=== PATIENT | male | born 1965 | race Two or more races ===

== ENCOUNTER 2017-06-19 16:54 | Emergency (ER) | payer MEDICAID ==
[~2017-06-19] VITALS: Ht 177.8 cm; Wt 65.8 kg
[2017-06-19 17:02] VITALS: BP 117/66
== END 2017-06-19 22:41 | disposition left against medical advice (07) ==
LOC: ER 16:54
DX: R51 Headache (principal); Z53.21 Procedure and treatment not carried out due to patient leaving prior to being seen by health care provider; Y08.89XA Assault by other specified means, initial encounter
CPT/HCPCS: 70450

== ENCOUNTER 2023-11-28 12:58 | Inpatient (IN) | payer MEDICAID ==
[~2023-11-28] VITALS: Ht 177.8 cm; Wt 64.1 kg
[2023-11-28 14:18] LABS: Basophils # (auto) 0.1 10 ^3/uL (0-0.2); Basophils % (auto) 0.9 % (0.0-2.0); Eosinophils # (auto) 0.1 10 ^3/uL (0-0.8); Eosinophils % (auto) 1.8 % (0.0-7.0); Hematocrit 38.1 % (41.0-53.0); Hemoglobin 13.4 g/dL (13.5-17.5); Lymphocytes % (auto) 47.6 % (10.0-50.0); Mean Corpuscular Volume 94.3 fL (80.0-100.0); Monocytes # (auto) 0.4 10 ^3/uL (0-1.3); Monocytes % (auto) 6.4 % (0.0-12.0); Neutrophils # (auto) 2.8 10 ^3/uL (1.6-8.6); Neutrophils % (auto) 43.3 % (37.0-80.0); Nucleated Red Blood Cells % 0.1 %; Platelet Count (auto) 249 10^3/uL (140-450); Red Blood Cells 4.05 10^6/uL (4.5-5.90); Red Cell Distribution Width 13.1 % (11.8-14.3); White Blood Cell 6.4 10^3/uL (4.4-10.8)
[2023-11-28 14:35] LABS: Chloride 105 mmol/L (98-107); Potassium 3.9 mmol/L (3.5-5.1); Sodium 142 mmol/L (136-145)
[2023-11-28 14:36] LABS: Anion Gap 7 (5-15); Calcium 9.6 mg/dL (8.7-10.4); Carbon Dioxide 30 mmol/L (20-30)
[2023-11-28 14:41] LABS: BUN/Creatinine Ratio 10.8 (10.0-20.0); Blood Urea Nitrogen 9 mg/dL (9-23); Glucose 85 mg/dL (74-106)
[2023-11-28 14:42] LABS: INR 1.06 (0.9-1.15); Partial Thromboplastin Time 28.2 SEC (24.5-34.5); Prothrombin Time 11.2 sec (9.3-11.8)
[2023-11-28 15:05] LABS: Urine Bacteria FEW /hpf (None Seen); Urine Blood Negative /uL (Negative); Urine Clarity Clear (Clear); Urine Color Yellow (Yellow); Urine Mucus FEW (None Seen); Urine Protein, UAD Negative (Negative); Urine Specific Gravity 1.018 (1.001-1.035); Urine Urobilinogen Normal (Negative); Urine WBC 1 /hpf (0 - 3); Urine pH 5.5 (5.0-9.0)
[2023-11-28] MEDS: IOHEXOL 300 MG/ML 100ML BOTTLE IJ ONE (15:07)
[2023-11-28 15:54] VITALS: PULSE 85; RESP 16; O2SAT 97
[2023-11-28] MEDS ORDERED: DOCUSATE SOD 100 MG CAP PO PRN (16:15)
[2023-11-28] MEDS ORDERED: ONDANSETRON HCL 4 MG/2 ML VIAL IV PRN (16:15)
[2023-11-28] MEDS ORDERED: HYDROmorphone HCL 2 MG/ML VL/or syr IV PRN (16:15)
[2023-11-28] MEDS ORDERED: ACETAMINOPHEN 325 MG TAB PO PRN (16:15)
[2023-11-28] MEDS ORDERED: HYDROcodone-ACET 5/325MG TAB PO PRN (16:15)
[2023-11-28] MEDS: ONDANSETRON HCL 4 MG/2 ML VIAL IV ONE (16:21)
[2023-11-28] MEDS: MORPHINE SULFATE 4 MG/ML SYR/VIAL IV ONE (16:22)
[2023-11-28] MEDS: FAMOTIDINE (10MG/ML) 2ML VL IV ONE (16:24)
[2023-11-28 21:55] VITALS: BP 110/70; PULSE 67; RESP 18; TEMP 97.6; O2SAT 99
[2023-11-28] MEDS: SODIUM CHLOR 0.9% PF (SALINE LOCK) 10ML VIAL/SYR IV SCH (23:06)
[2023-11-29 05:00] VITALS: BP 104/67; PULSE 78; RESP 18; TEMP 97.6; O2SAT 98
[2023-11-29 08:00] VITALS: RESP 18; O2SAT 98
[2023-11-29] MEDS ORDERED: LIDOCAINE 1% INJ PF 5ML AMP ONE (08:40)
[2023-11-29] MEDS ORDERED: fentaNYL CITRATE 100 MCG/2 ML VL ONE (08:40)
[2023-11-29] MEDS ORDERED: ONDANSETRON HCL 4 MG/2 ML VIAL ONE (08:40)
[2023-11-29] MEDS ORDERED: KETOROLAC TROMETH 30 MG/ML 1ML VIAL ONE (08:40)
[2023-11-29] MEDS ORDERED: DexAMETHasone SOD PHOS 10MG/1ML VIAL INJ ONE (08:40)
[2023-11-29] MEDS ORDERED: GLYCOPYRROLATE 0.2 MG/ML 1ML VIAL ONE (08:40)
[2023-11-29] MEDS ORDERED: KETAMINE 50mg/ML 1ml syringe ONE (08:40)
[2023-11-29] MEDS ORDERED: PROPOFOL 10 MG/ML 20 ML IV ONE ×4 (08:40→10:13)
[2023-11-29 09:00] VITALS: BP 112/74; PULSE 52; RESP 16; TEMP 97.9; O2SAT 100
[2023-11-29] MEDS: GABAPENTIN 400 MG CAP PO ONE (09:15)
[2023-11-29] MEDS: ACETAMINOPHEN IV 1000 MG/100ML (10MG/ML) IV ONE (09:15)
[2023-11-29] MEDS: CELECOXIB 100 MG CAP PO ONE (09:15)
[2023-11-29] MEDS: ceFAZolin 2 GM/D5W50ml 50 ML IV ONE (09:22)
[2023-11-29 09:30] LABS: Basophils # (auto) 0 10 ^3/uL (0-0.2); Basophils % (auto) 0.6 % (0.0-2.0); Eosinophils # (auto) 0.1 10 ^3/uL (0-0.8); Eosinophils % (auto) 1.8 % (0.0-7.0); Hematocrit 37.3 % (41.0-53.0); Hemoglobin 13.1 g/dL (13.5-17.5); Lymphocytes # (auto) 1.8 10 ^3/uL (0.4-5.4); Lymphocytes % (auto) 29.9 % (10.0-50.0); Mean Corpuscular Hemoglobin 33.2 pg (28.0-32.0); Monocytes # (auto) 0.4 10 ^3/uL (0-1.3); Monocytes % (auto) 6.2 % (0.0-12.0); Neutrophils # (auto) 3.6 10 ^3/uL (1.6-8.6); Neutrophils % (auto) 61.5 % (37.0-80.0); Platelet Count (auto) 222 10^3/uL (140-450); Red Blood Cells 3.93 10^6/uL (4.5-5.90); Red Cell Distribution Width 13.2 % (11.8-14.3); White Blood Cell 5.9 10^3/uL (4.4-10.8)
[2023-11-29] MEDS: LIDOCAINE W/ EPINEPHRINE 1% 20ML VIAL ONE (09:42)
[2023-11-29 10:12] LABS: Alanine Aminotransferase 20 U/L (7-40); Alkaline Phosphatase 84 U/L (46-116); Anion Gap 1 (5-15); BUN/Creatinine Ratio 11.1 (10.0-20.0); Blood Urea Nitrogen 9 mg/dL (9-23); Calcium 9.2 mg/dL (8.7-10.4); Carbon Dioxide 31 mmol/L (20-30); Chloride 109 mmol/L (98-107); Glucose 92 mg/dL (74-106); Magnesium 1.8 mg/dL (1.6-2.6); Potassium 4.1 mmol/L (3.5-5.1); Sodium 141 mmol/L (136-145)
[2023-11-29 10:13] LABS: Aspartate Aminotransferase 12 U/L (13-40); Bilirubin, Total 0.9 mg/dL (0.2-1.0)
[2023-11-29] MEDS ORDERED: ceFAZolin 1GM VL ONE (10:23)
[2023-11-29 10:42] VITALS: RESP 11; TEMP 97.6; O2SAT 98
[2023-11-29] MEDS ORDERED: HYDR-4902 PO (10:54)
[2023-11-29] MEDS ORDERED: hydrALAZINE HCL 20 MG/ML VL IV PRN (11:00)
[2023-11-29] MEDS ORDERED: FLUMAZENIL 0.1 MG/ML INJ 10ML MDV IV PRN (11:00)
[2023-11-29] MEDS ORDERED: NALOXONE HCL 0.4 MG/ML VIAL IV PRN (11:00)
[2023-11-29] MEDS ORDERED: oxyCODONE HCL 5MG TAB PO PRN (11:00)
[2023-11-29] MEDS ORDERED: fentaNYL CITRATE 100 MCG/2 ML VL IV PRN (11:00)
[2023-11-29] MEDS ORDERED: ePHEDrine SULFATE 50 MG/ML AMP IV PRN (11:00)
[2023-11-29] MEDS ORDERED: HYDROmorphone HCL 2 MG/ML VL/or syr IV PRN (11:00)
[2023-11-29] MEDS ORDERED: ONDANSETRON HCL 4 MG/2 ML VIAL IV PRN (11:00)
[2023-11-29 12:30] VITALS: BP 130/77; PULSE 64; RESP 18; O2SAT 100
== END 2023-11-29 12:51 | disposition left against medical advice (07) | DRG 228 ==
LOC: ER 12:58 → OVERFLOW 16:05 → EAST 21:54
PROVIDERS: ADMIT Internal Medicine Pulmonary Disease; ATTEND Internal Medicine Pulmonary Disease
PROC: 0YU60JZ Supplement Left Inguinal Region with Synthetic Substitute, Open Approach (ICD-10-PCS; principal; 2023-11-29 09:22)
DX: K40.30 Unilateral inguinal hernia, with obstruction, without gangrene, not specified as recurrent (principal); F17.210 Nicotine dependence, cigarettes, uncomplicated; N50.819 Testicular pain, unspecified; Z53.29 Procedure and treatment not carried out because of patient's decision for other reasons; Z83.3 Family history of diabetes mellitus; Z79.899 Other long term (current) drug therapy
CPT/HCPCS: 36415; 74177; 76870; 80048; 80053; 81001; 83735; 85025; 85610; 85730; 93005; 96374; 96375; G0378; J0131; J0690; J1100; J1885; J2405; J2704; J3490